=== PATIENT | female | born 1995 | race Caucasian/White ===

== ENCOUNTER 2018-07-13 04:18 | Emergency (ER) | payer OTHER ==
[~2018-07-13] VITALS: Ht 172.7 cm; Wt 61.4 kg
[~2018-07-13 04:18] MED LIST: SUMA50TA3 PO
[2018-07-13 04:26] VITALS: BP 125/84
== END 2018-07-13 05:53 | disposition home or self-care (01) ==
LOC: ED 05:47
DX: S63.522A Sprain of radiocarpal joint of left wrist, initial encounter (principal); W19.XXXA Unspecified fall, initial encounter; Y93.89 Activity, other specified; Y92.410 Unspecified street and highway as the place of occurrence of the external cause; Y99.8 Other external cause status
CPT/HCPCS: 29260; 99283